=== PATIENT | female | born 1940 | race Caucasian/White ===

== ENCOUNTER 2018-04-20 01:36 | Emergency (ER) | payer MEDICARE, OTHER ==
[2018-04-20] MEDS ORDERED: Sodium Chloride 0.9% 10 ML Syringe FLUSH PRN (02:31)
[2018-04-20] MEDS ORDERED: HYDROmorphone 1 MG/ML Syringe IVPUSH ONE ×2 (02:31→06:51)
--- NOTE | 2018-04-20 02:59 | EDM.PDOC ---
ED HPI GENERAL MEDICAL PROBLEM - General Chief Complaint: Lower Extremity Injury/Pain Stated Complaint: AMBULANCE-LOWER EXTREMITY PAIN Time Seen by Provider: 04/20/18 01:46 Source of Information: Reports: Patient, EMS, EMS Notes Reviewed, Family, RN, RN Notes Reviewed History Limitations: Reports: No Limitations - History of Present Illness INITIAL COMMENTS - FREE TEXT/NARRATIVE: Pt to ER per [facility] with c/o pain to the left shoulder, upper arm, and elbow, as well as left hip. Patient states she had fallen asleep in the chair and got up to go to the bathroom when she lost her balance and fell into a door frame. Patient denies hitting her head or losing consciousness. Patient rates her pain 8-9/10 in the upper arm, somewhat less in the hip. Patient states it is very painful to wiggle the fingers. 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: Cold Therapy - Related Data Allergies Allergy/AdvReac Type Severity Reaction Status Date / Time No Known Allergies Allergy Verified 04/20/18 01:40 Home Meds: Home Meds Calcium Carbonate [Calcium] 500 mg PO DAILY 04/20/18 [History] Fish Oil/[place]-3 Fatty Acids [Fish Oil] 1,200 mg PO DAILY 04/20/18 [History] Furosemide 40 mg PO DAILY 04/20/18 [History] Potassium Chloride 30 meq PO BID 04/20/18 [History] Spironolactone 50 mg PO DAILY 04/20/18 [History] Past Medical History HEENT History: Reports: Impaired Vision Cardiovascular History: Reports: High Cholesterol, Hypertension Respiratory History: Reports: Asthma 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 ED EXAM, GENERAL - Physical Exam Exam: See Below Exam Limited By: No Limitations General Appearance: Alert, WD/WN, Moderate Distress Eye Exam: Bilateral Eye: EOMI, Normal Inspection Ears: Normal External Exam, Hearing Grossly Normal Nose: Normal Inspection Throat/Mouth: Normal Inspection, Normal Voice, No Airway Compromise Head: Atraumatic, Normocephalic Neck: Normal Inspection, Supple, Non-Tender, Limited Range of Motion Respiratory/Chest: No Respiratory Distress, Wheezing (exp, right upper lobe) Cardiovascular: Normal Peripheral Pulses, Regular Rate, Rhythm, No Gallop, No JVD, No Murmur, No Rub, Other (lower extremity edema) Peripheral Pulses: 2+: Radial (L), Radial (R), Dorsalis Pedis (L), Dorsalis Pedis (R) GI/Abdominal: Normal Bowel Sounds, Soft, Non-Tender (Female) Exam: Deferred Rectal (Female) Exam: Deferred Back Exam: Normal Inspection, Full Range of Motion Extremities: Pedal Edema, Arm Pain (left), Limited Range of Motion (left arm, left hip) Neurological: Alert, Oriented, Normal Cognition, No Motor/Sensory Deficits Psychiatric: Normal Affect, Normal Mood Skin Exam: Warm, Dry, Intact, Normal Color, No Rash Lymphatic: No Adenopathy Course - Vital Signs Last Recorded V/S: Last Vital Signs Temp 96.3 F 04/20/18 01:46 Pulse 66 04/20/18 01:46 Resp 17 04/20/18 01:46 BP 177/87 H 04/20/18 01:46 Pulse Ox 100 04/20/18 01:46 - Orders/Labs/Meds Orders: Active Orders 24 hr Category Date Time Status Peripheral IV Care [RC] . DIRECTED Care 04/20/18 02:31 Active Humerus Lt [CR] Urgent Exams 04/20/18 01:54 Taken Sodium Chloride 0.9% [Saline Flush] Med 04/20/18 02:31 Active 10 ml FLUSH ASDIRECTED PRN Peripheral IV Insertion Adult [OM.PC] Stat Oth 04/20/18 02:31 Ordered Medication Orders Sodium Chloride (Saline Flush) 10 ml FLUSH ASDIRECTED PRN PRN Reason: Keep Vein Open Last Admin: 04/20/18 02:37 Dose: 10 ml Meds: Medications Generic Name Dose Route Start Last Admin Trade Name Freq PRN Reason Stop Dose Admin Sodium Chloride 10 ml 04/20/18 02:31 04/20/18 02:37 Saline Flush FLUSH 10 ml ASDIRECTED PRN Administration Keep Vein Open Discontinued Medications Generic Name Dose Route Start Last Admin Trade Name Juan Cq PRN Reason Stop Dose Admin Hydromorphone HCl 1 mg 04/20/18 02:31 04/20/18 02:37 Dilaudid IVPUSH 04/20/18 02:32 1 mg ONETIME ONE Administration Hydromorphone HCl 1 mg 04/20/18 06:51 04/20/18 07:00 Dilaudid IVPUSH 04/20/18 06:52 1 mg ONETIME ONE Administration - Radiology Interpretation Free Text/Narrative:: Left shoulder xray: FINDINGS: Bones/joints: There is an acute impacted fracture of the proximal left humeral metaphysis. Soft tissues: Normal. IMPRESSION: Acute impacted fracture of the proximal left humeral metaphysis Thank you for allowing us to participate in the care of your patient. Dictated and Authenticated by: Jasmeet Estes MD 04/20/2018 2:50 AM Central Time ([place] & [place]) Addendum created by Jasmeet Estes MD on 04/20/2018 6:31 AM Central Time ([place] & [place]) There is no evidence for dislocation. Left humerus xray: FINDINGS: Bones/joints: There is an acute impacted fracture of the proximal left humeral metaphysis. Soft tissues: Normal. IMPRESSION: Acute impacted fracture of the proximal left humeral metaphysis Thank you for allowing us to participate in the care of your patient. Dictated and Authenticated by: Jasmeet Estes MD 04/20/2018 2:51 AM Central Time ([place]) Left hip/pelvis xray: FINDINGS: Bones/joints: Normal. No acute fracture. Soft tissues: Normal. IMPRESSION: No acute findings. Thank you for allowing us to participate in the care of your patient. Dictated and Authenticated by: Jasmeet Estes MD 04/20/2018 2:53 AM Central Time ([place] & [place]) See Rad report - Re-Assessments/Exams Free Text/Narrative Re-Assessment/Exam: 04/20/18 05:20 Discussed patient case with Cb Christy at [facility]. He states he would like a Scap Y view of the shoulder completed and sent to him via PACS. He states if there is anything abnormal with this xray, such as dislocation that he would like to be notified. Otherwise, the patient can have pain controlled, sling the left arm, and he will see her in the clinic May 01 or in [place]. Departure - Departure Time of Disposition: 07:20 Disposition: Home, Self-Care 01 Condition: Fair Clinical Impression: Humerus fracture Qualifiers: Encounter type: initial encounter Humerus Location: surgical neck Fracture type : closed Fracture morphology: unspecified fracture morphology Fracture alignment : displaced Laterality: left Qualified Code(s): S42.212A - Unspecified displaced fracture of surgical neck of left humerus, initial encounter for closed fracture Fall at home Qualifiers: Encounter type: initial encounter Qualified Code(s): W19.XXXA - Unspecified fall, initial encounter; Y92.009 - Unspecified place in unspecified non- institutional (private) residence as the place of occurrence of the external cause - Discharge Information *PRESCRIPTION DRUG MONITORING PROGRAM REVIEWED*: No *COPY OF PRESCRIPTION DRUG MONITORING REPORT IN PATIENT CEASAR: No Instructions: Humerus Fracture Treated With Immobilization, [id number] Forms: ED Department Discharge Additional Instructions: Follow up with Dr. Felipe at [facility] on May 01 or . Please call [facility] at [phone] to make this appointment. RX: Tramadol - My Orders Last 24 Hours: My Active Orders 04/20/18 01:54 Humerus Lt [CR] Urgent 04/20/18 02:31 Peripheral IV Care [RC] . DIRECTED Sodium Chloride 0.9% [Saline Flush] 10 ml FLUSH ASDIRECTED PRN Peripheral IV Insertion Adult [OM.PC] Stat - Assessment/Plan Last 24 Hours: My Active Orders 04/20/18 01:54 Humerus Lt [CR] Urgent 04/20/18 02:31 Peripheral IV Care [RC] . DIRECTED Sodium Chloride 0.9% [Saline Flush] 10 ml FLUSH ASDIRECTED PRN Peripheral IV Insertion Adult [OM.PC] Stat
== END 2018-04-20 07:20 | disposition home or self-care (01) ==
LOC: DL.ED 01:36
DX: S42.212A Unspecified displaced fracture of surgical neck of left humerus, initial encounter for closed fracture (principal); E78.00 Pure hypercholesterolemia, unspecified; I10 Essential (primary) hypertension; J45.909 Unspecified asthma, uncomplicated; W18.09XA Striking against other object with subsequent fall, initial encounter; Z79.899 Other long term (current) drug therapy; Y92.009 Unspecified place in unspecified non-institutional (private) residence as the place of occurrence of the external cause
CPT/HCPCS: 73020; 73030; 73060; 73502; 96374; 96375; 99284; J1170

== ENCOUNTER 2018-05-05 19:18 | Emergency (ER) | payer MEDICARE, OTHER ==
[2018-05-05 20:42] LABS: ANION GAP 15.1; CHLORIDE,CL 97 mmol/L (101-111); SODIUM,NA 135 mmol/L (135-145)
[2018-05-05] MEDS ORDERED: Enoxaparin 100 MG/1 ML Syringe SUBCUT ONE (21:34)
--- NOTE | 2018-05-05 21:39 | EDM.PDOC ---
ED HPI GENERAL MEDICAL PROBLEM - General Chief Complaint: Lower Extremity Injury/Pain Stated Complaint: BLOOD CLOT? [id number] Time Seen by Provider: 05/05/18 20:53 Source of Information: Reports: Patient History Limitations: Reports: No Limitations - History of Present Illness INITIAL COMMENTS - FREE TEXT/NARRATIVE: states fell onto left side 10 days ago with broken left arm and bruised left hip. been doing fine till today when left lower leg started hurting and thought it would go away but got worse and pain going up into left groin. denies SOB/CP , states been coughing since February but nothing new. Left Groin Pain Score (Numeric/FACES): 6 - Related Data Allergies Allergy/AdvReac Type Severity Reaction Status Date / Time No Known Allergies Allergy Verified 05/05/18 19:39 Home Meds: Home Meds Calcium Carbonate [Calcium] 500 mg PO DAILY 04/20/18 [History] Fish Oil/[place]-3 Fatty Acids [Fish Oil] 1,200 mg PO DAILY 04/20/18 [History] Furosemide 40 mg PO DAILY 04/20/18 [History] Potassium Chloride 30 meq PO BID 04/20/18 [History] Spironolactone 50 mg PO DAILY 04/20/18 [History] Acetaminophen [Tylenol Extra Strength] 500 mg PO DAILY 05/05/18 [History] Aspirin 325 mg PO DAILY 05/05/18 [History] Past Medical History HEENT History: Reports: Impaired Vision Cardiovascular History: Reports: High Cholesterol, Hypertension Respiratory History: Reports: Asthma Gastrointestinal History: Reports: None Genitourinary History: Reports: None 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: Musculoskeletal History: Reports: Other (See Below) Other Musculoskeletal History: fractured left shoulder Neurological History: Reports: None Psychiatric History: Reports: None Endocrine/Metabolic History: Reports: None Hematologic History: Reports: None Immunologic History: Reports: None Oncologic (Cancer) History: Reports: None Dermatologic History: Reports: None - Infectious Disease History Infectious Disease History: Reports: None - Past Surgical History Head Surgeries/Procedures: Reports: None Social & Family History - Family History Family Medical History: Noncontributory - Tobacco Use Smoking Status *Q: Never Smoker - Caffeine Use Caffeine Use: Reports: Coffee, Soda, Tea - Recreational Drug Use Recreational Drug Use: No Review of Systems - Review of Systems Review Of Systems: ROS reveals no pertinent complaints other than HPI. ED EXAM, GENERAL - Physical Exam Exam: See Below Exam Limited By: No Limitations General Appearance: Alert, WD/WN, Mild Distress, Other (discomfort) Ears: Hearing Grossly Normal Throat/Mouth: Normal Voice, No Airway Compromise Head: Atraumatic Neck: Non-Tender, Full Range of Motion Respiratory/Chest: No Respiratory Distress, No Accessory Muscle Use, Rhonchi. No: Decreased Breath Sounds Cardiovascular: Regular Rate, Rhythm GI/Abdominal: Soft, Non-Tender Extremities: Other (left leg mild swelling, NV wnl, no gross D/D) Neurological: Alert, Oriented, Normal Cognition, Normal Gait, No Motor/Sensory Deficits Psychiatric: Normal Affect, Normal Mood Skin Exam: Warm, Dry, Normal Color Lymphatic: No Adenopathy Course - Vital Signs Last Recorded V/S: Last Vital Signs Temp 36.6 C 05/05/18 21:04 Pulse 85 05/05/18 21:04 Resp 16 05/05/18 21:04 BP 136/54 L 05/05/18 21:04 Pulse Ox 96 05/05/18 21:04 - Orders/Labs/Meds Orders: Active Orders 24 hr Category Date Time Status Enoxaparin [Lovenox] Med 05/05/18 21:34 Once 100 mg SUBCUT ONETIME ONE Labs: Laboratory Tests 05/05/18 05/05/18 05/05/18 Range/Units 20:15 20:15 20:15 WBC 7.6 (5.0-10.0) 10^3/uL RBC 4.27 (4.2-5.4) 10^6/uL Hgb 13.0 (12.0-16.0) g/dL Hct 39.5 (37.0-47.0) % MCV 92.5 (80-100) fL MCH 30.4 (27.0-34.0) pg MCHC 32.9 L (33.0-35.0) g/dL Plt Count 212 (150-450) 10^3/uL Neut % (Auto) 52.9 (42.2-75.2) % Lymph % (Auto) 31.5 (20.5-50.1) % [place] % (Auto) 12.5 H (2-8) % Eos % (Auto) 2.6 (1.0-3.0) % Baso % (Auto) 0.5 (0.0-1.0) % PT (9.0-12.0) SEC INR (0.9-1.2) APTT (22.0-34.0) SEC D-Dimer, Quantitative 3250 H (0-400) ng/mL Sodium 135 (135-145) mmol/L Potassium 4.1 (3.6-5.0) mmol/L Chloride 97 L (101-111) mmol/L Carbon Dioxide 27.0 (21.0-31.0) mmol/L Anion Gap 15.1 BUN 26 H (7-18) mg/dL Creatinine 0.9 (0.6-1.3) mg/dL Est Cr Clr Drug Dosing 49.00 mL/min Estimated GFR (MDRD) > 60 BUN/Creatinine Ratio 28.88 Glucose 105 (74-105) mg/dL Calcium 9.3 (8.4-10.2) mg/dl Total Bilirubin 0.6 (0.2-1.0) mg/dL AST 25 (10-42) IU/L ALT 26 (10-60) IU/L Alkaline Phosphatase 60 (42-121) IU/L Total Protein 7.0 (6.7-8.2) g/dl Albumin 3.9 (3.2-5.5) g/dl Globulin 3.1 Albumin/Globulin Ratio 1.26 / Range/Units 20:15 WBC (5.0-10.0) 10^3/uL RBC (4.2-5.4) 10^6/uL Hgb (12.0-16.0) g/dL Hct (37.0-47.0) % MCV (80-100) fL MCH (27.0-34.0) pg MCHC (33.0-35.0) g/dL Plt Count (150-450) 10^3/uL Neut % (Auto) (42.2-75.2) % Lymph % (Auto) (20.5-50.1) % [place] % (Auto) (2-8) % Eos % (Auto) (1.0-3.0) % Baso % (Auto) (0.0-1.0) % PT 9.7 (9.0-12.0) SEC INR 1.0 (0.9-1.2) APTT 29.2 (22.0-34.0) SEC D-Dimer, Quantitative (0-400) ng/mL Sodium (135-145) mmol/L Potassium (3.6-5.0) mmol/L Chloride (101-111) mmol/L Carbon Dioxide (21.0-31.0) mmol/L Anion Gap BUN (7-18) mg/dL Creatinine (0.6-1.3) mg/dL Est Cr Clr Drug Dosing mL/min Estimated GFR (MDRD) BUN/Creatinine Ratio Glucose (74-105) mg/dL Calcium (8.4-10.2) mg/dl Total Bilirubin (0.2-1.0) mg/dL AST (10-42) IU/L ALT (10-60) IU/L Alkaline Phosphatase (42-121) IU/L Total Protein (6.7-8.2) g/dl Albumin (3.2-5.5) g/dl Globulin Albumin/Globulin Ratio - Re-Assessments/Exams Free Text/Narrative Re-Assessment/Exam: 05/05/18 21:[address] Denney who rec' [facility] and Dr Abdul @ [facility] kindly accepted pt for [facility] Departure - Departure Time of Disposition: 21:41 Disposition: DC/Tfer to Acute Hospital 02 Condition: Fair Clinical Impression: D-dimer, elevated, Leg pain, left - Discharge Information Forms: Interfacility Transfer EMTALA - My Orders Last 24 Hours: My Active Orders 05/05/18 21:34 Enoxaparin [Lovenox] 100 mg SUBCUT ONETIME ONE - Assessment/Plan Last 24 Hours: My Active Orders 05/05/18 21:34 Enoxaparin [Lovenox] 100 mg SUBCUT ONETIME ONE
== END 2018-05-05 22:09 ==
LOC: DL.ED 19:18
DX: M79.662 Pain in left lower leg (principal); R79.1 Abnormal coagulation profile; R10.32 Left lower quadrant pain; E78.00 Pure hypercholesterolemia, unspecified; I10 Essential (primary) hypertension; Z79.899 Other long term (current) drug therapy; Z79.82 Long term (current) use of aspirin
CPT/HCPCS: 36415; 80053; 85025; 85379; 85610; 85730; 96372; 99284; J1650

== ENCOUNTER → 2018-08-31 | Outpatient (CLI) | payer MEDICARE, OTHER ==
--- NOTE | 2018-08-31 09:26 | MR ---
CLINICAL HISTORY: 78-year-old 261 pound female with low back pain and sciatica (unspecified laterality). No previous exams of the back at this institution for comparison. Persistent symptomatology despite greater than 6 weeks of conservative therapy. SCAN TECHNIQUE: Sagittal T1/T2/T2 fat saturation and unenhanced axial T1/T2 magnetic resonance images lumbar spine and upper sacrum obtained with the patient lying supine on the Soni 1.5 Renetta [employer] magnet [place], [place]. All data archived in the PACS system for storage, reformatting and study. INTERPRETATION: Abnormal. 1. Large Schmorl's node defect dorsal endplate and insufficiency fracture of the L3 vertebral body. Hemangiomas T12, L1, L4. 2. Chronic multilevel lumbar disc degeneration, i.e., desiccation/flattening nucleus pulposus intervertebral discs with anterior (nonclinical) herniation disc density material and large marginal osteophytes present at nearly all levels from L1 through S1. 3. Dextro roto lumbar scoliosis. No pathologic skeletal lesion or spondylolisthesis. 4. *Posterior mild annular subligamentous disc herniation contributing with hypertrophy of the ligamentum flavum to mid and lower lumbar spinal canal stenosis particularly at the L3-4, L4-5 levels (asymmetric prominent disc encroachment left lateral recesses). 5. No extruded "free" intracanalicular disc fragment, intracanalicular soft tissue tumor mass, congenital nerve root cysts or adhesions of the cauda equina or nerve roots. No tethering of the cord.
== END ==
LOC: DL.MRI 07:43
PROVIDERS: ATTEND Internal Medicine
DX: M54.40 Lumbago with sciatica, unspecified side (principal); M25.512 Pain in left shoulder; M75.102 Unspecified rotator cuff tear or rupture of left shoulder, not specified as traumatic; M25.462 Effusion, left knee; R60.0 Localized edema; M75.42 Impingement syndrome of left shoulder
CPT/HCPCS: 72148; 73221-LT

== ENCOUNTER 2020-12-25 05:12 | Day surgery (SDC) | payer MEDICARE, OTHER ==
[2020-12-25] MEDS ORDERED: fentaNYL 100 MCG/2 ML SDV IV ONE (05:13)
[2020-12-25] MEDS ORDERED: Midazolam 1 MG/ML 2 ML SDV IV ONE (05:13)
[2020-12-25] MEDS: Dextrose 5%-0.45% NaCl 1,000 ML IV SCH (05:57)
[2020-12-25] MEDS ORDERED: Sodium Chloride 0.9% 10 ML Syringe FLUSH PRN (06:00)
[2020-12-25] MEDS ORDERED: fentaNYL 100 MCG/2 ML SDV ONE (06:07)
[2020-12-25] MEDS ORDERED: Midazolam 1 MG/ML 2 ML SDV ONE (06:07)
[2020-12-25] MEDS: fentaNYL 100 MCG/2 ML SDV IV ONE ×3 (06:41→06:55)
[2020-12-25] MEDS: Midazolam 1 MG/ML 2 ML SDV IV ONE ×7 (06:42→06:51)
--- NOTE | 2020-12-25 07:55 | OR ---
DATE: 12/25/2020 PROCEDURE: Total colonoscopy, narrow-band imaging, and cold snare polypectomy. INSTRUMENT USED: PCF-H190DL Olympus video colonoscope. PREMEDICATIONS: Fentanyl 125 mcg intravenous, Versed 4 mg intravenous. Nasal O2 cannula. The procedure was done under pulse oximetry, BP recording, and ballistics expert forensic. INDICATION: The patient with positive Cologuard. Colonoscopic examination is done for detection of any polypoid lesions and removal, endoscopic hemostasis therapy if needed. DESCRIPTION OF PROCEDURE: Initial rectal exam showed some perianal deformity and external hemorrhoids. Rigid anoscopy showed small internal hemorrhoids without bleeding from them. The colonoscope was passed with ease. Numerous scattered diverticula were noted along with deformity. The scope was passed with ease up to the ileocecal area. Photographs were taken of the normal- appearing cecum, identified by double-bulged ileocecal folds. No bleeding was noted from any of the visualized areas at the commencement of the examination. The bowel preparation was found to be adequate, [place] scale 2 in right and left colon, 3 in the transverse colon, total score 7. No stricture, no vascular ectasia. No large isolated ulcerations seen. No evidence of diffuse inflammatory bowel disease in the form of friability, contact bleeding, or ulcerations. In the proximal ascending colon, around 1 cm sized superficial benign polyp was noted. NBI views were obtained, photographs were taken, cold snare polypectomy was done, and the tissue was retrieved and sent for histopathology. Probing the proximal sides of folds and flexures using adequate distention and clearing of the stool material, withdrawal of the scope was made, cecum to rectum time over 6 minutes. No bleeding was noted from any of the visualized areas at the completion of examination. IMPRESSION: 1. External and internal hemorrhoids. 2. Diverticulosis. 3. Ascending colon polyp. The patient tolerated the procedure well. [facility] /[id number]
--- NOTE | 2020-12-26 08:43 | LETTER ---
12/25/2020 RE: PATRICIA CULVER : 1940 [address] Head PA-C [address] [place] [address]. Dear Ms. Head: Ms. Patricia Lr had colonoscopic examination done this morning, and she tolerated the procedure well. I herewith send a copy of the endoscopy note and photographs for your review. Thank you. Sincerely, [facility] /[id number]
== END 2020-12-25 09:17 | disposition home or self-care (01) ==
LOC: DL.ENDO 05:12
PROVIDERS: ATTEND Internal Medicine Gastroenterology
DX: D12.2 Benign neoplasm of ascending colon (principal); K64.4 Residual hemorrhoidal skin tags; K64.8 Other hemorrhoids; K57.30 Diverticulosis of large intestine without perforation or abscess without bleeding; E66.01 Morbid (severe) obesity due to excess calories; E78.5 Hyperlipidemia, unspecified; I10 Essential (primary) hypertension; Z90.49 Acquired absence of other specified parts of digestive tract; Z98.890 Other specified postprocedural states; Z88.8 Allergy status to other drugs, medicaments and biological substances
CPT/HCPCS: 45385; J2250; J3010; J7042; 88305